=== PATIENT | female | born 1950 | race Caucasian/White ===

== ENCOUNTER 2016-06-30 15:30 | Emergency (ER) | payer OTHER ==
[2016-06-30 14:37] LABS: BASOPHIL% 0.3 % (0-2.5); EOSINOPHIL# 0.1 X10e3 (0-0.7); EOSINOPHIL% 1.1 % (0.0-7.0); HEMATOCRIT 42.7 % (35.0-45.0); LYMPHOCYTE# 2.6 X10e3 (1.0-3.5); LYMPHOCYTE% 27.7 % (17.0-45.0); MEAN CELL VOLUME 87.3 FL (83-96); MEAN CORPUSCULAR HEMOGLOBIN 28.6 PG (28-34); MEAN CORPUSCULAR HGB CONC 32.8 g/dL (30-36); MEAN PLATELET VOLUME 7.1 FL (6.5-11.5); MONOCYTE# 0.5 X10e3 (0-1.0); MONOCYTE% 5.4 % (3.0-12.0); NEUTROPHIL# 6.1 X10e3 (1.5-7.1); NEUTROPHIL% 65.5 % (40-75); PLATELET COUNT 297 X10e3 (140-420); RED BLOOD COUNT 4.89 X10e (3.90-5.30); RED CELL DISTRIBUTION WIDTH 15.4 % (11.0-15.5); WHITE BLOOD COUNT 9.3 X10e3 (4.0-10.5)
[2016-06-30 14:41] LABS: DIFF IND NO
[2016-06-30 14:46] LABS: URINE SOURCE CLEAN CATCH
[2016-06-30 14:51] LABS: URINE APPEARANCE CLEAR; URINE BILIRUBIN NEG (NEG); URINE BLOOD 1+ (NEG); URINE COLOR YELLOW; URINE GLUCOSE NEG (NEG); URINE KETONE NEG (NEG); URINE LEUKOCYTE ESTERASE 2+ (NEG); URINE NITRATE NEG (NEG); URINE PH 6.5 (5-8); URINE PROTEIN NEG (NEG); URINE SPECIFIC GRAVITY 1.057 (1.003-1.035); URINE UROBILINOGEN 0.2 MG/DL (NEG)
[2016-06-30 14:53] LABS: CULTURE INDICATED? YES; U HYALINE CASTS AUWI 0-2 /[LPF]; URINE BACTERIA AUWI NEG (NEGATIVE); URINE SQUAMOUS EPITHELIAL CELL FEW /[HPF]
[2016-06-30 15:00] LABS: BUN/CREATININE RATIO 25.38; CALCIUM SERUM 9.3 mg/dL (8.4-10.2); CREATININE SERUM 1.3 mg/dL (0.6-1.4); GLOM FILT RATE Estimated 42.7 mL/min (>60); POTASSIUM 3.8 mmol/L (3.5-5.1)
== END 2016-06-30 16:40 | disposition home or self-care (01) ==
LOC: CED 15:30
PROVIDERS: Emergency Medicine
DX: N13.2 Hydronephrosis with renal and ureteral calculous obstruction (principal); I10 Essential (primary) hypertension; Z90.49 Acquired absence of other specified parts of digestive tract
CPT/HCPCS: 36415; 80048; 81003; 85025; 87086; 99284

== ENCOUNTER → 2016-06-30 | Outpatient (CLI) | payer OTHER ==
[~2016-06-30] MED LIST: ASPIRIN EC81 M1 PO; ASPIRIN PO; BONINE; CALCIUM 5001 TAB PO; CERTAGEN PO; COMPLETE ALLERG PO; DITROPAN XL PO; DITROPAN XL5 M2 PO; FISH OIL 1,0001 CAP PO; GLUCOSAMINE CHOND PO; HCTZ PO; HYDROCHLOROTHIA25 MG PO; K-DUR20 ME2 PO; LASIX20 MG PO; LEVOTHYROXINE88 MCG PO; LORATADINE PO; MULTI VITAMIN1 EACH PO; NASACORT AQ16.5 GM; NASACORT10.8 ML; OMEPRAZOLE20 M1 PO; OSTEO BI-FLEX1 EAC1 PO; SYNTHROID PO; TARKA 4/2401 BOTTLE PO; VESICARE PO; VIT E PO; ZESTRIL40 MG PO
--- NOTE | ~2016-06-30 | CT2 ---
[facility] A Service of [facility] & [facility] RADIOLOGY TEXT RESULTS PATIENT: XIOMARA CRABTREE LOCATION: [facility] : 50 UNIT #: [id number] AGE: [address]: Dick Avelar MD SEX: F ORDER DR: [id number] [facility] [address] [place], [place] [address] [id number] O MR#: [id number] Acc #: [id number] NAME: XIOMARA CRABTREE : 1950 SEX: F STUDY DATE/TIME: 06/30/2016 13:06 UNIT: [facility] ROOM: STUDY DESCRIPTION: CT Abd and Pelv W Cont Attending Physician: Dick Avelar M.D. Referring Physician: Dick Avelar M.D. Ordering Physician: Dick Avelar M.D. Primary Care Physician: Juliette Walker M.D. MEDICAL IMAGING REPORT This report is preliminary unless electronic signature is present EXAM Contrast enhanced abdomen and pelvis CT. 06/30/2016. INDICATION 66-year-old female with right lower quadrant pain since April, feeling of gas, some nausea and vomiting, hypertension, cholecystectomy. No history of malignancy. TECHNIQUE Contrast-enhanced abdomen and pelvis CT was performed. This CT exam was performed with one or more of the following radiation dose reduction techniques: automatic exposure control, adjustment of mA and/or kV according to patient size, and iterative reconstruction. COMPARISON STUDIES We have no comparisons. FINDINGS CT ABDOMEN: Included lung bases demonstrate old healed granulomatous disease but are otherwise clear. No effusion or pericardial effusion. There is a small hiatal hernia. Aorta demonstrates no aneurysm or dissection. Spleen, adrenal glands, and pancreas are unremarkable and the gallbladder is surgically absent. There is probable physiologic mild dilatation of the extrahepatic common bile duct. No intrahepatic biliary ductal dilatation. Kidneys demonstrate severe hydronephrotic change of the right kidney secondary to an obstructing 16 x 8 mm stone at the right UPJ level. Beyond the level of the obstructing stone, the ureter is decompressed. Urologic referral is recommended as this stone will not pass spontaneously given size dimensions. Left kidney is unremarkable. [facility] A Service of [facility] & [facility] RADIOLOGY TEXT RESULTS PATIENT: XIOMARA CRABTREE LOCATION: [facility] : 50 UNIT #: [id number] AGE: [address]: Dick Avelar MD SEX: F ORDER DR: CT PELVIS: There is streak artifact from a total right hip replacement. Bladder unremarkable. No adnexal mass, free fluid, or drainable fluid collection in the pelvis. Intermittent diverticulosis of the colon. The bowel is unremarkable. Appendix not identified. No secondary sign of appendicitis or inflammatory change in the right lower quadrant. Inguinal canals are unremarkable. No suspicious bone lesion. There are degenerative changes in the thoracolumbar spine. 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 IMPRESSION 1. Abnormal examination. Results have been discussed with physician nutritional assistant, Pola Padron, in the office of Dr. Avelar at the time of this dictation. The examination is abnormal. There is a 16 x 8 mm obstructing stone at the right UPJ level with severe right-sided hydronephrosis of the right kidney. Due to the size of the stone, this will require urologic referral. Pola Padron has requested that we ask the patient to proceed to the Emergency Department here at [facility] for further care and referral instructions. The patient is in the process of being taken to the emergency department at the time of this dictation. 2. The left kidney is unremarkable. 3. The gallbladder is surgically absent. 4. Appendix not identified. No secondary sign of inflammatory change in the right lower quadrant. 5. Incidental diverticulosis. 6. Courtesy call has been placed to Dr. Paz in the emergency department regarding the patient's impending arrival. STAT * RESULT Dictated by... Donovan Garrido M.D. THIS IS AN ELECTRONICALLY VERIFIED REPORT Donovan Garrido M.D. at 07/01/2016 10:31 PM DIAZ/ramos TD: 06/30/2016 13:49 JOB #: [id number] MEDICAL IMAGING REPORT Page 1 of 1 COPY
[2016-06-30 16:11] LABS: POC - CREATININE 1.08 mg/dL (0.44-1.03)
== END | disposition home or self-care (01) ==
LOC: CCAT 11:30
PROVIDERS: Family Medicine
DX: R10.31 Right lower quadrant pain (principal); K29.70 Gastritis, unspecified, without bleeding; N20.1 Calculus of ureter; N13.30 Unspecified hydronephrosis; Z90.49 Acquired absence of other specified parts of digestive tract
CPT/HCPCS: 74177; 82565; Q9967

== ENCOUNTER → 2016-07-25 | Outpatient (CLI) | payer OTHER ==
--- NOTE | ~2016-07-25 | CR7 ---
[facility] A Service of [facility] & [facility] RADIOLOGY TEXT RESULTS PATIENT: XIOMARA CRABTREE LOCATION: [facility] : 50 UNIT #: [id number] AGE: [address]: Manuel Espinal MD SEX: F ORDER DR: [id number] [facility] [address] [place], [place] [address] [id number] O MR#: [id number] Acc #: [id number] NAME: XIOMARA CRABTREE : 1950 SEX: F STUDY DATE/TIME: 07/25/2016 9:01 UNIT: [facility] ROOM: STUDY DESCRIPTION: CR Abdomen Single AP View Attending Physician: Manuel Espinal M.D. Referring Physician: Manuel Espinal M.D. Ordering Physician: Manuel Espinal M.D. Primary Care Physician: Juliette Walker M.D. MEDICAL IMAGING REPORT This report is preliminary unless electronic signature is present EXAM KUB HISTORY SUPPLIED Kidney stone. Postop lithotripsy 1 week ago. FINDINGS KUB is obtained. There is a large stone fragment over the proximal ureter just below the ureteropelvic junction measuring up to 1.9 cm. Right double-J ureteral stent appears in appropriate position. CONCLUSION Large stone along the course of the right proximal ureter. Double-J stent appears in appropriate position. Dictated by... Vinod Miller M.D. THIS IS AN ELECTRONICALLY VERIFIED REPORT Vinod Miller M.D. at 07/26/2016 7:32 AM ROBERT/dylan TD: 07/25/2016 11:03 JOB #: [id number] MEDICAL IMAGING REPORT Page 1 of 1 COPY
== END | disposition home or self-care (01) ==
LOC: CRAD 08:51
DX: N20.0 Calculus of kidney (principal); N20.1 Calculus of ureter; Z96.0 Presence of urogenital implants
CPT/HCPCS: 74000

== ENCOUNTER → 2016-10-10 | Outpatient (CLI) | payer OTHER ==
--- NOTE | ~2016-10-10 | US77 ---
[facility] A Service of [facility] & [facility] RADIOLOGY TEXT RESULTS PATIENT: XIOMARA CRABTREE LOCATION: [facility] : 50 UNIT #: [id number] AGE: [address]: Manuel Espinal MD SEX: F ORDER DR: [id number] [facility] [address] [place], [place] [address] [id number] O MR#: [id number] Acc #: [id number] NAME: XIOMARA CRABTREE : 1950 SEX: F STUDY DATE/TIME: 10/10/2016 15:36 UNIT: [facility] ROOM: STUDY DESCRIPTION: US Kidney Bilateral Complete Attending Physician: Manuel Espinal M.D. Referring Physician: Manuel Espinal M.D. Ordering Physician: Manuel Espinal M.D. Primary Care Physician: Juliette Walker M.D. MEDICAL IMAGING REPORT This report is preliminary unless electronic signature is present EXAM Bilateral renal ultrasound HISTORY Kidney stones. Prior lithotripsy 1 month ago. Currently no pain. FINDINGS Ultrasound examination both kidneys demonstrates severe right hydronephrosis and advanced generalized right renal parenchymal atrophy, corresponding to a similar findings on CT 06/30/2016. No hydronephrosis on the left. No left renal mass or perinephric stranding. Survey of the urinary bladder is unremarkable. IMPRESSION 1. Severe right hydronephrosis and advanced generalized right renal parenchymal atrophy, corresponding to a similar findings on CT 06/30/2016. 2. Left kidney is unremarkable. 3. Survey of the urinary bladder is unremarkable. Dictated by... Alexsander Donis M.D. THIS IS AN ELECTRONICALLY VERIFIED REPORT Alexsander Donis M.D. at 10/11/2016 10:55 PM DFCole/luana TD: 10/11/2016 10:48 JOB #: [id number] MEDICAL IMAGING REPORT Page 1 of 1 COPY
== END | disposition home or self-care (01) ==
LOC: CGUS 14:44
DX: N20.1 Calculus of ureter (principal); N13.30 Unspecified hydronephrosis
CPT/HCPCS: 76770

== ENCOUNTER → 2016-10-19 | Outpatient (CLI) | payer OTHER ==
--- NOTE | ~2016-10-19 | NM29 ---
[facility] A Service of [facility] & [facility] RADIOLOGY TEXT RESULTS PATIENT: XIOMARA CRABTREE LOCATION: [facility] : 50 UNIT #: [id number] AGE: [address]: Manuel Espinal MD SEX: F ORDER DR: [id number] [facility] [address] [place], [place] [address] [id number] O MR#: [id number] Acc #: [id number] NAME: XIOMARA CRABTREE : 1950 SEX: F STUDY DATE/TIME: 10/19/2016 9:38 UNIT: [facility] ROOM: STUDY DESCRIPTION: NM Kidney Vasc Flow Sng W Attending Physician: Manuel Espinal M.D. Referring Physician: Manuel Espinal M.D. Ordering Physician: Manuel Espinal M.D. Primary Care Physician: Juilette Walker M.D. MEDICAL IMAGING REPORT This report is preliminary unless electronic signature is present EXAM Renal nuclear medicine study of flow and function INDICATIONS Flow and function of Lasix administration. History is large right kidney stone and the patient has had 3 surgeries in the past to remove it and the physicians feels like the stone is still present and may be causing an obstruction. Patient has dull pressure in the right lower quadrant right side. TECHNIQUE The patient was given 4.29 mCi of technetium-99m MAG3. Lasix was given for 6 minutes. Time activity curves were generated for each kidney and images were obtained. FINDINGS The left kidney has normal flow and function with peak activity at 5 minutes and a T1/2 for 7 minutes. The left kidney has 68% of the uptake. The right kidney has a flat curve. It reaches peak activity by 15 minutes and despite the administration of Lasix for 6 minutes, it does not show significant clearance. Recent ultrasound showed severe right hydronephrosis. IMPRESSION 1. Normal left kidney. Flow and function are normal and the left kidney has 68% of the uptake. 2. Abnormal right kidney analysis. There is a dampened accumulation curve on the right side with only about 32% activity developing on the right side. There does not appear to be a complete obstruction since the activity does not continue to increase over time. It plateaus at about 8 or 9 minutes and stays relatively flat out through about 20 minutes which is probably due to the large size of [facility] A Service of [facility] & [facility] RADIOLOGY TEXT RESULTS PATIENT: XIOMARA CRABTREE LOCATION: [facility] : 50 UNIT #: [id number] AGE: [address]: Manuel Espinal MD SEX: F ORDER DR: the dilated renal pelvis. The administration of Lasix for 6 minutes did not cause any significant decrease in the activity in the left kidney. Dictated by... Johnny Hansen M.D. THIS IS AN ELECTRONICALLY VERIFIED REPORT Johnny Hansen M.D. at 10/24/2016 4:02 PM AYDIN/nayana TD: 10/24/2016 12:27 JOB #: [id number] MEDICAL IMAGING REPORT Page 1 of 1 COPY
== END | disposition home or self-care (01) ==
LOC: CNUC 08:29
DX: N20.0 Calculus of kidney (principal); R94.4 Abnormal results of kidney function studies
CPT/HCPCS: 78708; A9562; J1940